=== PATIENT | female | born 1950 | race Caucasian/White ===

== ENCOUNTER 2019-06-12 14:54 | Emergency (ER) | payer MEDICAID ==
[~2019-06-12] VITALS: Ht 152.4 cm; Wt 67.0 kg
[2019-06-12] MEDS ORDERED: LEVO100T9 PO (15:26)
[2019-06-12] MEDS ORDERED: ATEN50TA PO (15:26)
[2019-06-12] MEDS ORDERED: ATOR40TA70 PO (15:26)
[2019-06-12] MEDS ORDERED: SODIUM CHLORIDE 0.9% 1,000 ML IV ONE (16:15)
[2019-06-12 16:37] LABS: BASOPHILS % 0.5 % (0.0-2.0); CHLORIDE 100 mEq/L (98-107); EOSINOPHILS % 1.3 % (0.0-5.0); HEMATOCRIT. 35.7 % (36.0-48.0); HEMOGLOBIN. 12.4 g/dL (12.0-16.0); LYMPHOCYTES % 23.3 % (20.0-50.0); MEAN CORPUSCULAR HEMOGLOBIN 31.3 pg (28.0-32.0); MEAN CORPUSCULAR VOLUME 90.2 fL (81.0-99.0); MEAN PLATELET VOLUME 7.8 fl (7.4-10.4); MONOCYTES % 10.8 % (2.0-8.0); NEUTROPHILS % 64.1 % (40.0-76.0); PLATELET 255 x1000/uL (130-400); RED BLOOD CELL COUNT 3.95 mill/uL (4.2-5.4); RED CELL DISTRIBUTION WIDTH 13.9 % (11.6-14.6)
[2019-06-12] MEDS ORDERED: CLINDAMYCIN 600 MG in DEXTROSE 5% WATER 50 ML IV ONE (17:00)
[2019-06-12] MEDS ORDERED: CLINDAMYCIN 600MG PREMIX 50 ML IV SCH (17:15)
[2019-06-12 18:33] VITALS: BP 120/77
== END 2019-06-12 18:55 | disposition home or self-care (01) ==
LOC: ER 14:54
DX: T88.0XXA Infection following immunization, initial encounter (principal); L03.114 Cellulitis of left upper limb; Y84.8 Other medical procedures as the cause of abnormal reaction of the patient, or of later complication, without mention of misadventure at the time of the procedure; Y92.018 Other place in single-family (private) house as the place of occurrence of the external cause
CPT/HCPCS: 36415; 80053; 85025; 99283; J3490; J7030; J7060

== ENCOUNTER 2022-09-06 15:09 | Emergency (ER) | payer MEDICAID ==
[~2022-09-06] VITALS: Ht 162.6 cm; Wt 70.0 kg
[~2022-09-06 15:09] MED LIST: ATEN50TA PO; ATOR40TA70 PO; LEVO100T9 PO
[2022-09-06 16:21] LABS: BASOPHILS % 0.6 % (0.0-2.0); EOSINOPHILS % 0.5 % (0.0-5.0); HEMOGLOBIN. 12.9 g/dL (12.0-16.0); LYMPHOCYTES % 22.3 % (20.0-50.0); MEAN CORPUSCULAR HEMOGLOBIN 30.5 pg (28.0-32.0); MEAN CORPUSCULAR VOLUME 90.1 fL (81.0-99.0); MEAN PLATELET VOLUME 7.4 fl (7.4-10.4); MONOCYTES % 8.6 % (2.0-8.0); PLATELET 320 x1000/uL (130-400); RED BLOOD CELL COUNT 4.21 mill/uL (4.2-5.4); RED CELL DISTRIBUTION WIDTH 13.3 % (11.6-14.6)
[2022-09-06 16:36] LABS: CHLORIDE 98 mEq/L (98-107)
[2022-09-06 17:54] VITALS: BP 136/70
== END 2022-09-06 17:55 | disposition home or self-care (01) ==
LOC: ER 15:09
DX: R00.2 Palpitations (principal); I10 Essential (primary) hypertension; E03.9 Hypothyroidism, unspecified; Z79.899 Other long term (current) drug therapy
CPT/HCPCS: 36415; 71045; 80053; 84484; 85025; 93005; 99285